=== PATIENT | female | born 1970 | race Caucasian/White ===

== ENCOUNTER 2017-01-13 17:48 | Inpatient (IN) | payer OTHER ==
[2017-01-13 18:03] VITALS: BMI 20.2
--- NOTE | 2017-01-13 19:57 | PDOC ---
History of Present Illness - General Chief Complaint: Injury Stated Complaint: FALL/LT ARM INJURY/LT LEG INJURY Time Seen by Provider: 01/13/17 19:21 History Source: Patient - History of Present Illness Occurred: reports: yesterday Lower Extremity Pain Location: left: knee, hip Method of Injury: Yes: fell Past History - Past Medical History Allergies/Adverse Reactions: Allergies Allergy/AdvReac Type Severity Reaction Status Date / Time No Known Allergies Allergy Verified 01/13/17 18:03 Cardiac Disorders: (PVCS) HTN: Yes Liver Disease: Yes (cirrhosis) - Psycho/Social/Smoking Cessation Hx Suicidal Ideation: No Smoking History: Current every day smoker Number of Cigarettes Smoked Daily: 5 Information on smoking cessation initiated: Yes 'Breaking Loose' booklet given: 01/13/17 Hx Alcohol Use: No Drug/Substance Use Hx: No Review of Systems - Review of Systems Musculoskeletal: Yes: Joint Pain. No: Joint Swelling *Physical Exam - Vital Signs Last Vital Signs Temp Pulse Resp BP Pulse Ox 98.2 F 112 H 19 144/105 97 01/13/17 18:01 01/13/17 18:01 01/13/17 18:01 01/13/17 18:01 01/13/17 18:01 - Physical Exam General Appearance: Yes: Appropriately Dressed. No: Apparent Distress HEENT: positive: Normal Voice Neck: positive: Supple Respiratory/Chest: negative: Respiratory Distress Extremity: positive: Tender (w/ large area of ecchymosis to anterior distal L thigh, no joint swelling, deformity, able to bear weight in ED) Integumentary: positive: Dry, Warm Neurologic: positive: Fully Oriented, Alert, Normal Mood/Affect Medical Decision Making - Medical Decision Making 01/13/17 19:54 46-year-old female history of alcoholic cirrhosis, on transplant list, hypertension, here complaining of left hip and knee pain status post fall yesterday. Patient states while walking her dog, she tripped over an uneven pavement. Has had difficulty bearing weight on the left since. Denies any head injuries. Patient tachy at triage with large area of ecchymosis to distal aspect of anterior left thigh. No joint swelling or deformity. Able to bear weight. Most likely muscular, rule out fracture 01/13/17 20:38 X-ray negative for fracture. Upon reassessment, patient with severe tremor now and remains tachy to 112. Patient now admits that she drinks alcohol almost on a daily basis, but that last alcoholic intake was 4 days ago. Denies previous admissions for alcohol withdrawal or alcohol withdrawal related seizures. Patient transferred to main ED for further evaluation and treatment for etoh withdrawal. Charge nurse and ED attg aware *DC/Admit/Observation/Transfer Diagnosis at time of Disposition: Thigh contusion Qualifiers: Encounter type: initial encounter Laterality: left Qualified Code(s): S70.12XA - Contusion of left thigh, initial encounter Alcohol dependence with withdrawal Qualifiers: Complication of substance-induced condition: uncomplicated Qualified Code(s): F10.230 - Alcohol dependence with withdrawal, uncomplicated - Referrals Referrals: STAFF,NOT ON [Primary Care Provider] -
[2017-01-13] MEDS ORDERED: LORAZEPAM CARPU-JECT 2 MG/ML DISP.SYRIN IVPUSH ONE (20:39)
[2017-01-13] MEDS ORDERED: FOLIC ACID INJECTION - 1 MG, THIAMINE HCL 100 MG, MULTIVIT INJECTION ADULT 10 ML in SOD... IVPB ONE (20:39)
[2017-01-13] MEDS ORDERED: LORAZEPAM CARPU-JECT 2 MG/ML DISP.SYRIN ONE (21:03)
[2017-01-13] MEDS: SODIUM CHLORIDE 1,000 ML IV SCH (21:14)
[2017-01-13 21:18] LABS: BASOPHIL 1.2 % (0-2.0); EOSINOPHIL 0.2 % (0-4.5); MCH 37.4 pg (25.7-33.7); MCHC 32.8 g/dl (32.0-36.0); MEAN PLT VOLUME 10.8 fl (7.5-11.1); NEUTROPHILS 61.5 % (42.8-82.8); RDW 16.3 % (11.6-15.6); WHITE BLOOD COUNT 3.2 K/mm3 (4.0-10.0)
[2017-01-13 21:25] LABS: PLATELET COUNT 30 K/MM3 (134-434)
--- NOTE | 2017-01-13 21:26 | PDOC ---
History of Present Illness - General History Source: Patient, Old Records Exam Limitations: No Limitations - History of Present Illness Initial Comments: 01/14/17 04:57 The patient is a 46 year old female, with a significant past medical history of hypertension and alcoholic cirrhosis (the patient reports she is on liver transplant list), who presents to the emergency department with alcohol withdrawal. This patient was initially seen in fast track for left hip/pelvis and left knee pain s/p a mechanical trip and fall yesterday. The patient had x- rays done, which were negative for any acute injury. However, upon reassessment , the patient was noted to be tachycardic and tremulous in fast track so she was transferred to the main ED for further evaluation and management. The patient reports almost daily alcohol consumption and states that her most recent drink was 4 days ago. However, the patient denies any previous admissions for alcohol withdrawal or alcohol withdrawal related seizures. Upon arrival to the main ED, the patient is confused and appears to be visibly hallucinating because she is picking at bugs on the wall which do not exist. The patient does wish to enter a detox program for alcohol. Allergies: None reported. Past Surgical History: None reported. Social History: Current everyday smoker. Alcohol abuse - See HPI. Denies drug use. <Elen Ingram - Last Filed: 01/14/17 04:57> <Lawrence Ulirch - Last Filed: 01/14/17 06:19> - General Chief Complaint: Injury Stated Complaint: FALL/LT ARM INJURY/LT LEG INJURY Time Seen by Provider: 01/13/17 19:21 Past History <Elen Ingram - Last Filed: 01/14/17 04:57> - Past Medical History Cardiac Disorders: (PVCS) HTN: Yes Liver Disease: Yes (cirrhosis) - Psycho/Social/Smoking Cessation Hx Suicidal Ideation: No Smoking History: Current every day smoker Number of Cigarettes Smoked Daily: 5 Information on smoking cessation initiated: Yes 'Breaking Loose' booklet given: 01/13/17 Hx Alcohol Use: No Drug/Substance Use Hx: No <Lawrence Ulrich - Last Filed: 01/14/17 06:19> - Past Medical History Allergies/Adverse Reactions: Allergies Allergy/AdvReac Type Severity Reaction Status Date / Time No Known Allergies Allergy Verified 01/13/17 18:03 Home Medications: Ambulatory Orders Magnesium Oxide [Magnesium] 400 mg PO DAILY 01/13/17 Potassium Chloride 20 meq PO BID 01/13/17 Spironolactone 25 mg PO BID 01/13/17 Review of Systems - Review of Systems Able to Perform ROS?: Yes Comments:: 01/14/17 01:40 GENERAL/CONSTITUTIONAL: +Confusion. No fever or chills. No weakness. HEAD, EYES, EARS, NOSE AND THROAT: No change in vision. No ear pain or discharge. No sore throat. CARDIOVASCULAR: No chest pain or shortness of breath. RESPIRATORY: No cough, wheezing, or hemoptysis. GASTROINTESTINAL: No nausea, vomiting, diarrhea or constipation. GENITOURINARY: No dysuria, frequency, or change in urination. MUSCULOSKELETAL: No joint or muscle swelling or pain. No neck or back pain. SKIN: No rash. NEUROLOGIC: No headache, vertigo, loss of consciousness, or change in strength/ sensation. ENDOCRINE: No increased thirst. No abnormal weight change. HEMATOLOGIC/LYMPHATIC: No anemia, easy bleeding, or history of blood clots. ALLERGIC/IMMUNOLOGIC: No hives or skin allergy. <Elen Ingram - Last Filed: 01/14/17 04:57> *Physical Exam - Vital Signs Last Vital Signs Temp Pulse Resp BP Pulse Ox 98.2 F 112 H 19 144/105 97 01/13/17 18:01 01/13/17 18:01 01/13/17 18:01 01/13/17 18:01 01/13/17 18:01 - Physical Exam Comments: 01/14/17 01:39 GENERAL: Intention tremor. Awake, alert, and fully oriented, in no acute distress. HEAD: No signs of trauma. EYES: PERRLA, EOMI, sclera anicteric, conjunctiva clear. ENT: Auricles normal inspection, hearing grossly normal, nares patent, oropharynx clear without exudates. Moist mucosa. NECK: Normal ROM, supple, no lymphadenopathy, JVD, or masses. LUNGS: Breath sounds equal, clear to auscultation bilaterally. No wheezes, and no crackles. HEART: Regular rate and rhythm, normal S1 and S2, no murmurs, rubs or gallops. ABDOMEN: Soft, nontender, normoactive bowel sounds. No guarding, no rebound. No masses. EXTREMITIES: Normal range of motion, no edema. No clubbing or cyanosis. No cords , erythema, or tenderness. NEUROLOGICAL: Cranial nerves II through XII intact. Normal speech, gait deferred. SKIN: Warm, dry, normal turgor, no rashes or lesions noted. <Elen Ingram - Last Filed: 01/14/17 04:57> - Vital Signs Last Vital Signs Temp Pulse Resp BP Pulse Ox 98.2 F 112 H 19 144/105 97 01/13/17 18:01 01/13/17 18:01 01/13/17 18:01 01/13/17 18:01 01/13/17 18:01 <Lawrence Ulrich - Last Filed: 01/14/17 06:19> ED Treatment Course - LABORATORY CBC & Chemistry Diagram: 01/13/17 21:15 01/13/17 21:10 - ADDITIONAL ORDERS Additional order review: Laboratory Results 01/13/17 01/13/17 21:15 21:15 INR 1.74 H Direct Bilirubin 3.0 H Creatine Kinase 366 H Troponin I 0.02 01/13/17 21:15 RBC 2.75 L MCV 114.0 H MCHC 32.8 RDW 16.3 H MPV 10.8 Neutrophils % 61.5 Lymphocytes % 21.7 Monocytes % 15.4 H Eosinophils % 0.2 Basophils % 1.2 - Medications Given in the ED: ED Medications Discontinued Medications Generic Name Dose Route Start Last Admin Trade Name Freq PRN Reason Stop Dose Admin Lorazepam 2 mg 01/13/17 20:39 01/13/17 21:14 Ativan Injection - IVPUSH 01/13/17 20:40 2 mg ONCE ONE Administration <Elen Ingram - Last Filed: 01/14/17 04:57> - LABORATORY CBC & Chemistry Diagram: 01/13/17 21:15 01/13/17 21:10 - Medications Given in the ED: ED Medications Discontinued Medications Generic Name Dose Route Start Last Admin Trade Name Freq PRN Reason Stop Dose Admin Lorazepam 2 mg 01/13/17 20:39 01/13/17 21:14 Ativan Injection - IVPUSH 01/13/17 20:40 2 mg ONCE ONE Administration <Lawrence Ulrich - Last Filed: 01/14/17 06:19> Medical Decision Making - Medical Decision Making 01/14/17 01:42 The patient was initially confused but after she was given multivitamins in addition to Ativan in the main ED, she is now making sense and is requesting detox from alcohol. Arrangements will be made for the patient to receive detox from alcohol at [facility]. <Elen Ingram - Last Filed: 01/14/17 04:57> - Medical Decision Making 01/14/17 00:03 Patient no longer picking at bugs that are not there. No visual or audio hallucinations. Sleeping mostly with no tremor, when she tries to sit up she does shake a little. She realizes she needs, and wants help. I spoke with the Nursing [employer] Patcher Helper at [facility], Sharda Dugan, at [phone]. She tells me they can accept her at [facility]. 01/14/17 06:15 Patient still unable to walk due to tremor. I spoke with the Hospitalist Service, [Jammie for Dr. Cheng] and Dr. Chavira [ICU] Will admit to ICU. <Lawrence Ulrich - Last Filed: 01/14/17 06:19> *DC/Admit/Observation/Transfer - Attestations Scribe Attestion: 01/13/17 22:18 Documentation prepared by Elen Ingram, acting as medical doctor for Lawrence Ulrich MD/. <Elen Ingram - Last Filed: 01/14/17 04:57> - Discharge Dispostion Admit: Yes - Attestations Physician Attestion: 01/13/17 21:21 I, Dr. Lawrence Ulrich, attest that this document has been prepared under my direction and personally reviewed by me in its entirety. I further attest, that it accurately reflects all work, treatment, procedures and medical decision -making performed by me. <Lawrence Ulrich - Last Filed: 01/14/17 06:19> Diagnosis at time of Disposition: Thrombocytopenia Thigh contusion Qualifiers: Encounter type: initial encounter Laterality: left Qualified Code(s): S70.12XA - Contusion of left thigh, initial encounter Alcohol dependence with withdrawal Qualifiers: Complication of substance-induced condition: uncomplicated Qualified Code(s): F10.230 - Alcohol dependence with withdrawal, uncomplicated Alcohol withdrawal Qualifiers: Complication of substance-induced condition: with unspecified complication Qualified Code(s): F10.239 - Alcohol dependence with withdrawal, unspecified Cirrhosis of liver Qualifiers: Hepatic cirrhosis type: alcoholic cirrhosis Ascites presence: with ascites Qualified Code(s): K70.31 - Alcoholic cirrhosis of liver with ascites - Discharge Dispostion Condition at time of disposition: Unchanged/Unknown - Referrals Referrals: STAFF,NOT ON [Primary Care Provider] - - Patient Instructions Additional Instructions: Go Directly to [facility] for Detox Admission - Post Discharge Activity
[2017-01-13 21:50] LABS: PLATELET ESTIMATE DECREASED (NORMAL)
[2017-01-13 21:51] LABS: ANISOCYTOSIS 1+; HYPOCHROMIA FEW; INR 1.74 (0.82-1.09); POLYCHROMASIA FEW; PROTHROMBIN TIME (PATIENT) 19.4 SEC (9.98-11.88); TARGET CELLS FEW; TROPONIN I 0.02 ng/ml (0.00-0.05)
[2017-01-13 22:35] LABS: URINE MARIJUANA THC NEGATIVE ng/ml (CUTOFF=50)
[2017-01-13 23:26] LABS: ALK PHOS 142 U/L (45-117); ANION GAP 14 (8-16); BILIRUBIN,TOTAL 5.2 mg/dL (0.2-1.0); CALCIUM 8.4 mg/dL (8.5-10.1); CO2 22 mmol/L (21-32); CREATININE 0.6 mg/dL (0.55-1.02); GLUCOSE,RANDOM 123 mg/dL (74-106); SGOT/AST 144 U/L (15-37); SGPT/ALT 49 U/L (12-78); TOT PROT 8.8 g/dl (6.4-8.2)
[2017-01-14] MEDS ORDERED: LORazepam 1 MG TABLET PO ONE ×2 (00:02→06:14)
[2017-01-14] MEDS ORDERED: LORazepam 0.5 MG TABLET ONE ×2 (00:05→06:22)
[2017-01-14] MEDS ORDERED: FOLIC ACID INJECTION - 1 MG, THIAMINE HCL 100 MG, MULTIVIT INJECTION ADULT 10 ML in SOD... IVPB ONE (09:00)
[2017-01-14] MEDS: chlordiazePOXIDE HCL 25 MG CAPSULE PO SCH ×3 (11:21→22:13)
--- NOTE | 2017-01-14 12:18 | HP ---
CHIEF COMPLAINT:knee/hip pain; alcohol withdrawal PCP: HISTORY OF PRESENT ILLNESS: 46 year old female with a PMHx of hypertension, alcoholic liver cirrhosis (on transplant list), presents s/p fall after intoxication. Patient admits to recently drinking "2 bottles". Actual quantity and specific alcohol ingested unknown. Presented to ER with knee and hip ecchymosis, slurred speech. Unable to obtain detailed history due to withdrawal symptoms. ER course was notable for: (1)anemia; thrombocytopenia (2)xrays negative for fracture (3) Recent Travel: no PAST MEDICAL HISTORY: hypertension, liver cirrhosis PAST SURGICAL HISTORY: Social History: Smokin cigs per day Alcohol:daily Drugs: no Family History: Allergies No Known Allergies Allergy (Verified 01/13/17 18:03) HOME MEDICATIONS: Home Medications Medication Instructions Recorded Magnesium Oxide [Magnesium] 400 mg PO DAILY 01/13/17 Potassium Chloride 20 meq PO BID 01/13/17 Spironolactone 25 mg PO BID 01/13/17 REVIEW OF SYSTEMS CONSTITUTIONAL: Positive: chills, diaphoresis, generalized weakness, malaise, Absent: fever, loss of appetite, weight change HEENT: Absent: rhinorrhea, nasal congestion, throat pain, throat swelling, difficulty swallowing, mouth swelling, ear pain, eye pain, visual changes CARDIOVASCULAR: Absent: chest pain, syncope, palpitations, irregular heart rate, lightheadedness , peripheral edema RESPIRATORY: Absent: cough, shortness of breath, dyspnea with exertion, orthopnea, wheezing, stridor, hemoptysis GASTROINTESTINAL: Positive: nausea Absent: abdominal pain, abdominal distension, vomiting, diarrhea, constipation, melena, hematochezia GENITOURINARY: Absent: dysuria, frequency, urgency, hesitancy, hematuria, flank pain, genital pain MUSCULOSKELETAL: Absent: myalgia, arthralgia, joint swelling, back pain, neck pain SKIN: Positive: ecchymosis ; left knee; right thigh Absent: rash, itching, pallor HEMATOLOGIC/IMMUNOLOGIC: Absent: easy bleeding, easy bruising, lymphadenopathy, frequent infections ENDOCRINE: Absent: unexplained weight gain, unexplained weight loss, heat intolerance, cold intolerance NEUROLOGIC: Positive: dizziness, unsteady gait, extension tremor Absent: headache, focal weakness or paresthesias, seizure, mental status changes, bladder or bowel incontinence PSYCHIATRIC: Absent: anxiety, depression, suicidal or homicidal ideation, hallucinations. PHYSICAL EXAMINATION Vital Signs - 24 hr 01/14/17 01/14/17 01/14/17 07:36 08:02 09:21 Temperature 99.6 F Pulse Rate 85 Pulse Rate [ 77 76 Radial] Respiratory 16 16 20 Rate Blood Pressure 129/74 Blood Pressure 134/77 132/83 [Arm] O2 Sat by Pulse 97 99 94 L Oximetry (%) GENERAL: Awake, alert, not able to make full sentences HEAD: Normal with no signs of trauma. LUNGS: Breath sounds equal, clear to auscultation bilaterally. No wheezes, and no crackles. No accessory muscle use. HEART: tachycardic and rhythm, normal S1 and S2, systolic murmur, rub or gallop. ABDOMEN: Soft, nontender, not distended, normoactive bowel sounds, no guarding, no rebound, no masses. No hepatomegaly or splenomegaly. MUSCULOSKELETAL: Normal range of motion at all joints. No bony deformities or tenderness. No CVA tenderness. UPPER EXTREMITIES: 2+ pulses, warm, well-perfused. No cyanosis. No clubbing. No peripheral edema. LOWER EXTREMITIES: 2+ pulses, warm, well-perfused. No calf tenderness. No peripheral edema. b/l ecchymosis left knee; right thigh NEUROLOGICAL: unable to assess; patient not following commands SKIN: Warm, dry, normal turgor, no rashes or lesions noted, normal capillary refill. ecchymosis ASSESSMENT/PLAN: 46 yea old male with a PMHx of alcoholic cirrhosis, on transplant list, hypertension, daily drinker; last drink 4 days ago as per chart, presents with hip and leg pain s/p fall after binge drinking. Admitted for ETOH withdrawal #Alcohol withdrawal: -CIWA score 14 -ativan prn given in ER -started on librium protocol -50mg q6h for 24hrs -25mg q6h for 24hrs -15mg q6h for 24hrs -10mg q6h for 24hrs -re- evaluate for adjustments in taper -bananna bag with vit b12/folate # macrocytic anemia most likely secondary to alcohol -vit b12, folate -iron studies #hip and knee pain: -r/o fracture s/p fall -xrays negative for acute bony pathology #hypertension: -cont home med spironolactonbe with k supp FEN: Fluids: NS Electrolytes: trend Diet: regular VTE: prophylaxis : scds Disposition: monitor DTs Visit type - Emergency Visit Emergency Visit: Yes ED Registration Date: 01/14/17 Care time: The patient presented to the Emergency Department on the above date and was hospitalized for further evaluation of their emergent condition. - New Patient This patient is new to me today: Yes Date on this admission: 01/14/17 - Critical Care Critical Care patient: No
--- NOTE | 2017-01-14 18:48 | PN ---
Teaching Attending Note Name of Resident: Yeny Mancia ATTENDING PHYSICIAN STATEMENT I saw and evaluated the patient. I reviewed the resident's note and discussed the case with the resident. I agree with the resident's findings and plan as documented. SUBJECTIVE: This is a 46-year-old woman with a history of alcoholic cirrhosis, HTN who presents to the ER with left hip and left knee pain after a fall. She became tachycardic, tremulous and confused. She was noted to be seeing bugs on the chi. Her last drink was about 4 days ago. OBJECTIVE: Vital Signs Period Temp Pulse Resp BP Sys/Thao Pulse Ox Last 24 Hr 98.1 F-99.6 F 75-89 16-20 129-162/74-90 94-100 GENERAL: Awake, alert, confused. HEART: S1S2, RRR LUNGS: Clear ABDOMEN: Soft, non-tender, non-distended, normal BS EXTREMITIES: No edema ASSESSMENT AND PLAN: This is a 46-year-old woman with a history of alcoholic cirrhosis, HTN who presented to the ER with left hip and left knee pain after a fall and developed alcohol withdrawal. 1. Delirium tremens/alcohol withdrawal - Start Librium detox - Multivitamin, thiamine, folic acid 2. Continuous alcohol dependence 3. Alcoholic cirrhosis - Continue Aldactone 4. HTN - COntinue Aldactone 5. Pancytopenia secondary to alcohol and liver disease - Monitor CBC
[2017-01-14] MEDS: SPIRONOLACTONE 25 MG TABLET (FP) PO SCH (22:13)
[2017-01-14] MEDS: POTASSIUM CHLORIDE TABS 20 MEQ TABLET.ER (FP) PO SCH (22:13)
[2017-01-14] MEDS: SODIUM CHLORIDE 1,000 ML IV SCH (22:14)
[2017-01-15] MEDS: chlordiazePOXIDE HCL 25 MG CAPSULE PO SCH ×4 (05:19→23:50)
[2017-01-15 07:34] LABS: MCH 38.4 pg (25.7-33.7); MCHC 33.1 g/dl (32.0-36.0); MEAN CELL VOLUME 115.9 fl (80-96); MEAN PLT VOLUME 9.2 fl (7.5-11.1); RDW 15.6 % (11.6-15.6); WHITE BLOOD COUNT 3.2 K/mm3 (4.0-10.0)
[2017-01-15 07:59] LABS: PLATELET COUNT 18 K/MM3 (134-434)
--- NOTE | 2017-01-15 08:19 | EKG ---
Test Reason : Blood Pressure : / mmHG Vent. Rate : 077 BPM Atrial Rate : 077 BPM P-R Int : 154 ms QRS Dur : 100 ms QT Int : 454 ms P-R-T Axes : 063 063 058 degrees QTc Int : 513 ms NORMAL SINUS RHYTHM INCOMPLETE RIGHT BUNDLE BRANCH BLOCK NONSPECIFIC T WAVE ABNORMALITY PROLONGED QT ABNORMAL ECG NO PREVIOUS ECGS AVAILABLE Confirmed by PRIMO CORDON MD ([id number]) on 01/15/2017 8:19:09 AM Referred By: Confirmed By:PRIMO CORDON MD
[2017-01-15 11:14] LABS: ALBUMIN 2.5 g/dl (3.4-5.0); ALK PHOS 82 U/L (45-117); ANION GAP 13 (8-16); BILIRUBIN,TOTAL 6.8 mg/dL (0.2-1.0); CALCIUM 7.7 mg/dL (8.5-10.1); CO2 18 mmol/L (21-32); CREATININE 0.5 mg/dL (0.55-1.02); GLUCOSE,RANDOM 77 mg/dL (74-106); MAGNESIUM 1.2 mg/dL (1.8-2.4); PHOSPHOROUS 2.7 mg/dL (2.5-4.9); SGOT/AST 104 U/L (15-37); SGPT/ALT 35 U/L (12-78); TOT PROT 7.5 g/dl (6.4-8.2)
[2017-01-15] MEDS ORDERED: PT OWN MED DRAWER 7, Y5N ONE (11:14)
[2017-01-15] MEDS: POTASSIUM CHLORIDE TABS 20 MEQ TABLET.ER (FP) PO SCH ×2 (11:17→22:23)
[2017-01-15] MEDS: MAGNESIUM OXIDE 400 MG TABLET (FP) PO SCH (11:17)
[2017-01-15] MEDS: SPIRONOLACTONE 25 MG TABLET (FP) PO SCH ×2 (11:17→22:23)
[2017-01-15] MEDS: SODIUM CHLORIDE 1,000 ML IV SCH ×2 (11:18→22:23)
[2017-01-15 11:22] LABS: FERRITIN 1173.708 ng/ml (6.9-282.5)
[2017-01-15] MEDS ORDERED: POTASSIUM CHLORIDE TABS 20 MEQ TABLET.ER (FP) PO ONE (12:15)
[2017-01-15] MEDS ORDERED: MAGNESIUM OXIDE 400 MG TABLET (FP) PO ONE (12:15)
--- NOTE | 2017-01-15 16:45 | PN ---
Teaching Attending Note Name of Resident: Yeny Mancia ATTENDING PHYSICIAN STATEMENT I saw and evaluated the patient. I reviewed the resident's note and discussed the case with the resident. I agree with the resident's findings and plan as documented. SUBJECTIVE: Patient is sleepy. OBJECTIVE: Vital Signs Period Temp Pulse Resp BP Sys/Thao Pulse Ox Last 24 Hr 97.4 F-100.3 F 75-92 16-20 123-152/72-89 97 HEART: S1S2, RRR LUNGS: Clear ABDOMEN: Soft, non-distended, normal BS EXTREMITIES: No edema ASSESSMENT AND PLAN: This is a 46-year-old woman with a history of alcoholic cirrhosis, HTN who presented to the ER with left hip and left knee pain after a fall and developed alcohol withdrawal. 1. Delirium tremens/alcohol withdrawal - Improving - Continue Librium detox 2. Continuous alcohol dependence 3. Alcoholic cirrhosis - Continue Aldactone 4. HTN - Continue Aldactone 5. Pancytopenia secondary to alcohol and liver disease - Platelets decreased - continue to monitor - WBC, Hgb stable 6. Hypopkalemia - Replete potassium
--- NOTE | 2017-01-15 17:50 | CONSULT ---
Consult Detox [facility] Reason for Current Admission/Consult: Alcohol withdrawal sx. Referred by:: Yeny Mancia Res - History History of Present Illness: 46 y/o woman came to ER c/o left hip & pelvis pain following a fall.However pt. was observed to be tremulous & HR of 110/min - History Source History Provided By: Patient, Medical Record - Alcohol/Substance Use Hx Alcohol Use: Yes - Current Drug/Alcohol Use Alcohol Route: Oral Frequency: Daily Amount used: vodka 2 pints Date of Last Use: 01/09/17 - Significant Medical Findings: Laboratory Last Values WBC 3.2 K/mm3 (4.0-10.0) L 01/15/17 05:35 RBC 2.66 M/mm3 (3.60-5.2) L 01/15/17 05:35 Hgb 10.2 GM/dL (10.7-15.3) L 01/15/17 05:35 Hct 30.8 % (32.4-45.2) L 01/15/17 05:35 MCV 115.9 fl (80-96) H 01/15/17 05:35 MCHC 33.1 g/dl (32.0-36.0) 01/15/17 05:35 RDW 15.6 % (11.6-15.6) 01/15/17 05:35 Plt Count 18 K/MM3 (134-434) L* D 01/15/17 05:35 MPV 9.2 fl (7.5-11.1) D 01/15/17 05:35 Neutrophils % 61.5 % (42.8-82.8) 01/13/17 21:15 Lymphocytes % 21.7 % (8-40) 01/13/17 21:15 Monocytes % 15.4 % (3.8-10.2) H 01/13/17 21:15 Eosinophils % 0.2 % (0-4.5) 01/13/17 21:15 Basophils % 1.2 % (0-2.0) 01/13/17 21:15 Platelet Estimate Decreased (NORMAL) 01/13/17 21:15 Platelet Comment No clumping noted 01/13/17 21:15 Polychromasia Few 01/13/17 21:15 Hypochromic-Microcytic Few 01/13/17 21:15 Anisocytosis 1+ 01/13/17 21:15 Macrocytosis 3+ 01/13/17 21:15 Target Cells Few 01/13/17 21:15 Retic Count 3.95 % (0.5-1.5) H 01/15/17 05:50 INR 1.74 (0.82-1.09) H 01/13/17 21:15 Sodium 139 mmol/L (136-145) 01/15/17 05:40 Potassium 3.2 mmol/L (3.5-5.1) L 01/15/17 05:40 Chloride 108 mmol/L (98-107) H 01/15/17 05:40 Carbon Dioxide 18 mmol/L (21-32) L 01/15/17 05:40 Anion Gap 13 (8-16) 01/15/17 05:40 BUN 7 mg/dL (7-18) D 01/15/17 05:40 Creatinine 0.5 mg/dL (0.55-1.02) L 01/15/17 05:40 Creat Clearance w eGFR > 60 (>60) 01/15/17 05:40 Random Glucose 77 mg/dL (74-106) D 01/15/17 05:40 Calcium 7.7 mg/dL (8.5-10.1) L 01/15/17 05:40 Phosphorus 2.7 mg/dL (2.5-4.9) 01/15/17 05:40 Magnesium 1.2 mg/dL (1.8-2.4) L 01/15/17 05:40 Ferritin 1173.708 ng/ml (6.9-282.5) H 01/15/17 05:40 Total Bilirubin 6.8 mg/dL (0.2-1.0) H D 01/15/17 05:40 Direct Bilirubin 3.0 mg/dL (0.0-0.2) H 01/13/17 21:15 AST 104 U/L (15-37) H D 01/15/17 05:40 ALT 35 U/L (12-78) D 01/15/17 05:40 Alkaline Phosphatase 82 U/L (45-117) D 01/15/17 05:40 Ammonia 31.62 umol/L (11-32) 01/13/17 21:15 Creatine Kinase 366 IU/L (26-192) H 01/13/17 21:15 CK-MB (CK-2) 4.85 ng/ml (0.5-3.6) H 01/13/17 21:15 Troponin I 0.02 ng/ml (0.00-0.05) 01/13/17 21:15 Total Protein 7.5 g/dl (6.4-8.2) 01/15/17 05:40 Albumin 2.5 g/dl (3.4-5.0) L 01/15/17 05:40 Lipase 368 U/L (73-393) 01/13/17 21:10 Vitamin B12 2500 pg/ml (180-914) H 01/15/17 05:40 Serum Folate 20 ng/ml (3.1-17.5) H 01/15/17 05:40 Opiates Screen Negative ng/ml (TVFUEM=916) 01/13/17 22:17 Methadone Screen Negative ng/ml (SBERWD=363) 01/13/17 22:17 Barbiturate Screen Negative ng/ml (TDCWIE=326) 01/13/17 22:17 Phencyclidine Screen Negative ng/ml (CUTOFF=25) 01/13/17 22:17 Ur Amphetamines Screen Negative ng/ml (DNMSWK=136) 01/13/17 22:17 MDMA (Ecstasy) Screen Negative ng/ml (BWCKZL=855) 01/13/17 22:17 Benzodiazepines Screen Negative ng/ml (CLQPYR=322) 01/13/17 22:17 Cocaine Screen Negative ng/ml (HAKTSV=281) 01/13/17 22:17 U Marijuana (THC) Screen Negative ng/ml (CUTOFF=50) 01/13/17 22:17 Alcohol, Quantitative 14.9 mg/dl (0-5) H* 01/13/17 21:16 labs noted CIWA Score - CIWA Score Nausea/Vomitin Muscle Tremors: 5 Anxiety: 4-Mod. Anxious/Guarded Agitation: 4-Moderately Restless Paroxysmal Sweats: 3 Orientation: 0-Oriented Tacttile Disturbances: 1-Very Mild Itch/Numbness Auditory Disturbances: 0-None Visual Disturbances: 0-None Headache: 0-None Present CIWA-Ar Total Score: 19 Assessment Plan - Diagnosis (1) Alcohol dependence with withdrawal Status: Acute Qualifiers: Complication of substance-induced condition: uncomplicated Qualified Code(s): F10.230 - Alcohol dependence with withdrawal, uncomplicated (2) Cirrhosis of liver Status: Acute Qualifiers: Hepatic cirrhosis type: alcoholic cirrhosis Ascites presence: with ascites Qualified Code(s): K70.31 - Alcoholic cirrhosis of liver with ascites - Medication Detox Regimen/Protocol: Librium
--- NOTE | 2017-01-15 18:45 | PN ---
Physical Exam: SUBJECTIVE: Patient seen and examined, lethargic, less tremor. Family does NOT want patient to go to [facility] OBJECTIVE: Vital Signs Period Temp Pulse Resp BP Sys/Thao Pulse Ox Last 24 Hr 97.4 F-99.4 F 75-92 16-20 123-152/72-86 97 GENERAL: The patient is lethargic HEAD: Normal with no signs of trauma. LUNGS: Breath sounds equal, clear to auscultation bilaterally, no wheezes, no crackles, no accessory muscle use. HEART: Regular rate and rhythm, S1, S2 without murmur, rub or gallop. ABDOMEN: Soft, nontender, nondistended, normoactive bowel sounds, no guarding, no rebound, no hepatosplenomegaly, no masses. EXTREMITIES: 2+ pulses, warm, well-perfused, no edema. NEUROLOGICAL: Cranial nerves II through XII grossly intact. slurredspeech, gait not observed. extension tremor less; PSYCH: Normal mood, normal affect. SKIN: Warm, dry, normal turgor, no rashes or lesions noted Laboratory Results - last 24 hr 01/15/17 01/15/17 01/15/17 05:35 05:40 05:40 WBC 3.2 L RBC 2.66 L Hgb 10.2 L Hct 30.8 L MCV 115.9 H MCHC 33.1 RDW 15.6 Plt Count 18 L* D MPV 9.2 D Retic Count Sodium 139 Potassium 3.2 L Chloride 108 H Carbon Dioxide 18 L Anion Gap 13 BUN 7 D Creatinine 0.5 L Creat Clearance w eGFR > 60 Random Glucose 77 D Calcium 7.7 L Phosphorus 2.7 Magnesium 1.2 L Ferritin 1173.708 H Cancelled Total Bilirubin 6.8 H D AST 104 H D ALT 35 D Alkaline Phosphatase 82 D Total Protein 7.5 Albumin 2.5 L Vitamin B12 2500 H Cancelled Serum Folate 20 H 01/15/17 05:50 WBC RBC Hgb Hct MCV MCHC RDW Plt Count MPV Retic Count 3.95 H Sodium Potassium Chloride Carbon Dioxide Anion Gap BUN Creatinine Creat Clearance w eGFR Random Glucose Calcium Phosphorus Magnesium Ferritin Total Bilirubin AST ALT Alkaline Phosphatase Total Protein Albumin Vitamin B12 Serum Folate Active Medications Generic Name Dose Route Start Last Admin Trade Name Freq PRN Reason Stop Dose Admin Chlordiazepoxide HCl 25 mg 01/15/17 11:00 01/15/17 17:59 Librium - PO 01/16/17 05:01 25 mg [id number] JOSEMANUEL Administration Chlordiazepoxide HCl 15 mg 01/16/17 11:00 Librium - PO 01/17/17 05:01 [id number] JOSEMANUEL Chlordiazepoxide HCl 10 mg 01/17/17 11:00 Librium - PO 01/18/17 05:01 [id number] JOSEMANUEL Sodium Chloride 1,000 mls @ 125 mls/hr 01/13/17 20:45 01/15/17 11:18 Normal Saline - IV 125 mls/hr ASDIR JOSEMANUEL Administration Magnesium Oxide 400 mg 01/15/17 10:00 01/15/17 11:17 Mag-Ox - PO 400 mg DAILY JOSEMANUEL Administration Potassium Chloride 20 meq 01/14/17 22:00 01/15/17 11:17 K-Dur - PO 20 meq BID JOSEMANUEL Administration Spironolactone 25 mg 01/14/17 22:00 01/15/17 11:17 Aldactone - PO 25 mg BID JOSEMANUEL Administration ASSESSMENT/PLAN: 46 yea old male with a PMHx of alcoholic cirrhosis, on transplant list, hypertension, daily drinker; last drink 4 days ago as per chart, presents with hip and leg pain s/p fall after binge drinking. Admitted for ETOH withdrawal #Alcohol withdrawal: -CIWA score 14 -ativan prn given in ER -started on librium protocol -re- evaluate for adjustments in taper -bananna bag with vit b12/folate # macrocytic anemia most likely secondary to alcohol -vit b12, folate -iron studies #hip and knee pain: -r/o fracture s/p fall -xrays negative for acute bony pathology #hypertension: -cont home med spironolacton with k supp FEN: Fluids: NS Electrolytes: trend Diet: regular VTE: prophylaxis : scds Disposition: monitor DTs; Family does not want patient to go to [facility] for detox; they are interested in other options Visit type - Emergency Visit Emergency Visit: Yes ED Registration Date: 01/14/17 Care time: The patient presented to the Emergency Department on the above date and was hospitalized for further evaluation of their emergent condition. - New Patient This patient is new to me today: No - Critical Care Critical Care patient: No
--- NOTE | 2017-01-15 22:39 | HOSP ---
Subjective - Review of Symptoms HEENT: Yes: Eye Pain Physical Examination Vital Signs: Vital Signs Temperature 99 F 01/15/17 18:38 Pulse Rate 78 01/15/17 18:38 Respiratory Rate 18 01/15/17 21:00 Blood Pressure 129/74 01/15/17 18:38 O2 Sat by Pulse Oximetry (%) 95 01/15/17 21:00 Constitutional: Yes: Calm Eyes: Yes: Other (unable to open eyes.) Labs: CBC, BMP 01/15/17 05:35 01/15/17 05:40 Hospitalist Encounter Assessment: called by nursing to evaluation pt's eyes. at start of shift pt was noted to have severe crusting of b/l eyes and pt was unable to open them. after cleaning the honey-colored dried debri, eyelids were still difficult to open, scant thick discharge noted between eyelids. pt said she had contacts in, acuvue brand, placed prior to hospital admission. as per mother at bedside, there is only one contact in the left eye. pt said she had some pain to palpation around right orbital but denied eye pain. no edema, erythema, ecchymosis around b/l eyes. Outcome: after placing saline soaked gauze on b/l eyes for sometime, pt was able to slightly open them, enough to instill eye drop. suspicious for bacterial conjuctivities due to retained contacts. ciloxan 0.3% OU q6h. Recommendations/Interventions: continue eye drops. recommend opthomology evaluation if contacts are retained or no improvement with eye drops is seen. Visit type - Emergency Visit Emergency Visit: No - New Patient This patient is new to me today: Yes Date on this admission: 01/15/17 - Critical Care Critical Care patient: No
[2017-01-16] MEDS: CIPROFLOXACIN HCL 0.3% OPHTH 2.5ML BOTTLE OU SCH ×4 (01:38→18:31)
[2017-01-16] MEDS ORDERED: PT OWN MED DRAWER 7, Y5N ONE ×4 (01:42→18:11)
[2017-01-16] MEDS: chlordiazePOXIDE HCL 25 MG CAPSULE PO SCH (06:23)
--- NOTE | 2017-01-16 07:32 | PN ---
Physical Exam: SUBJECTIVE: Patient seen and examined more awake and oriented today. C/o of crust yellow discharge from b/l eyes. She states she has history of multiple eye infections. OBJECTIVE: Vital Signs Period Temp Pulse Resp BP Sys/Thao Pulse Ox Last 24 Hr 97.6 F-99.1 F 76-92 16-20 110-150/67-83 95 GENERAL: The patient is awake, alert, and fully oriented, in no acute distress. HEAD: Normal with no signs of trauma. EYES: sclera anicteric, yellow discharge b/l; eyes lids hard to open. No ptosis. LUNGS: Breath sounds equal, clear to auscultation bilaterally, no wheezes, no crackles, no accessory muscle use. HEART: Regular rate and rhythm, S1, S2 without murmur, rub or gallop. ABDOMEN: Soft, nontender, nondistended, normoactive bowel sounds, no guarding, no rebound, no hepatosplenomegaly, no masses. EXTREMITIES: 2+ pulses, warm, well-perfused, no edema. NEUROLOGICAL: Cranial nerves II through XII grossly intact. Normal speech, gait not observed. extension tremor improved PSYCH: Normal mood, normal affect. SKIN: Warm, dry, normal turgor, no rashes or lesions noted Laboratory Results - last 24 hr 01/15/17 01/15/17 01/15/17 05:35 05:40 05:40 WBC 3.2 L RBC 2.66 L Hgb 10.2 L Hct 30.8 L MCV 115.9 H MCHC 33.1 RDW 15.6 Plt Count 18 L* D MPV 9.2 D Retic Count Sodium 139 Potassium 3.2 L Chloride 108 H Carbon Dioxide 18 L Anion Gap 13 BUN 7 D Creatinine 0.5 L Creat Clearance w eGFR > 60 Random Glucose 77 D Calcium 7.7 L Phosphorus 2.7 Magnesium 1.2 L Ferritin 1173.708 H Cancelled Total Bilirubin 6.8 H D AST 104 H D ALT 35 D Alkaline Phosphatase 82 D Total Protein 7.5 Albumin 2.5 L Vitamin B12 2500 H Cancelled Serum Folate 20 H 01/15/17 05:50 WBC RBC Hgb Hct MCV MCHC RDW Plt Count MPV Retic Count 3.95 H Sodium Potassium Chloride Carbon Dioxide Anion Gap BUN Creatinine Creat Clearance w eGFR Random Glucose Calcium Phosphorus Magnesium Ferritin Total Bilirubin AST ALT Alkaline Phosphatase Total Protein Albumin Vitamin B12 Serum Folate Active Medications Generic Name Dose Route Start Last Admin Trade Name Freq PRN Reason Stop Dose Admin Chlordiazepoxide HCl 15 mg 01/16/17 11:00 Librium - PO 01/17/17 05:01 [id number] JOSEMANUEL Chlordiazepoxide HCl 10 mg 01/17/17 11:00 Librium - PO 01/18/17 05:01 [id number] JOSEMANUEL Ciprofloxacin 2 drop 01/16/17 01:15 01/16/17 06:20 Ciloxan 0.3% Eye Drops - OU 2 drop Q6H JOSEMANUEL Administration Sodium Chloride 1,000 mls @ 125 mls/hr 01/13/17 20:45 01/15/17 22:23 Normal Saline - IV 125 mls/hr ASDIR JOSEMANUEL Administration Magnesium Oxide 400 mg 01/15/17 10:00 01/15/17 11:17 Mag-Ox - PO 400 mg DAILY JOSEMANUEL Administration Potassium Chloride 20 meq 01/14/17 22:00 01/15/17 22:23 K-Dur - PO 20 meq BID JOSEMANUEL Administration Spironolactone 25 mg 01/14/17 22:00 01/15/17 22:23 Aldactone - PO 25 mg BID JOSEMANUEL Administration ASSESSMENT/PLAN: 46 yea old male with a PMHx of alcoholic cirrhosis, on transplant list, hypertension, daily drinker; last drink 4 days ago as per chart, presents with hip and leg pain s/p fall after binge drinking. Admitted for ETOH withdrawal #Alcohol withdrawal: -CIWA score 14 on admission -ativan prn given in ER -bananna bag with vit b12/folate on admission -started on librium protocol #conjunctivitis bacterial vx viral; -minor pain a with greenish/yellow discharge -warm compresses fo open eyes -antibiotics eye drops # macrocytic anemia most likely secondary to alcohol -vit b12, folate -iron studies #thrombocytopenia secondary to alcohol use: improving #hip and knee pain:improved -r/o fracture s/p fall -xrays negative for acute bony pathology #hypertension: controlled -cont home med spironolacton with k supp #hypomagneisemia: -replace; laurent -on diruetics; poor oral intake #hypokalemia: resolved FEN: Fluids: NS Electrolytes: trend Diet: regular VTE: prophylaxis : scds; thrombocytopenia: Disposition: finich librium protocol; does not want park care; d/c after taper Visit type - Emergency Visit Emergency Visit: Yes ED Registration Date: 01/14/17 Care time: The patient presented to the Emergency Department on the above date and was hospitalized for further evaluation of their emergent condition. - New Patient This patient is new to me today: No - Critical Care Critical Care patient: No
[2017-01-16 08:33] LABS: BASOPHIL 1.2 % (0-2.0); EOSINOPHIL 1.5 % (0-4.5); MCH 38.4 pg (25.7-33.7); MCHC 32.8 g/dl (32.0-36.0); MEAN CELL VOLUME 117.2 fl (80-96); MEAN PLT VOLUME 10.3 fl (7.5-11.1); NEUTROPHILS 57.3 % (42.8-82.8); RDW 15.9 % (11.6-15.6); WHITE BLOOD COUNT 3.7 K/mm3 (4.0-10.0)
[2017-01-16 08:50] LABS: CALCIUM 7.6 mg/dL (8.5-10.1); COCKROFT - GAULT 116.263; CREATININE 0.5 mg/dL (0.55-1.02); MAGNESIUM 1.4 mg/dL (1.8-2.4)
[2017-01-16 08:52] LABS: PLATELET COUNT 23 K/MM3 (134-434)
[2017-01-16] MEDS: SPIRONOLACTONE 25 MG TABLET (FP) PO SCH ×2 (09:50→21:50)
[2017-01-16] MEDS: MAGNESIUM OXIDE 400 MG TABLET (FP) PO SCH (09:50)
[2017-01-16] MEDS: POTASSIUM CHLORIDE TABS 20 MEQ TABLET.ER (FP) PO SCH ×2 (09:54→21:50)
[2017-01-16] MEDS: chlordiazePOXIDE 5 MG CAPSULE PO SCH ×3 (11:00→22:41)
--- NOTE | 2017-01-16 13:27 | PN ---
Teaching Attending Note Name of Resident: Yeny Mancia ATTENDING PHYSICIAN STATEMENT I saw and evaluated the patient. I reviewed the resident's note and discussed the case with the resident. I agree with the resident's findings and plan as documented. SUBJECTIVE: Patient is confused. She has no complaints. OBJECTIVE: Vital Signs Period Temp Pulse Resp BP Sys/Thao Pulse Ox Last 24 Hr 98.0 F-99.1 F 76-84 16-20 110-150/67-83 95-98 HEART: S1 S2, RRR LUNGS: Clear ABDOMEN: Soft, non-tender, non-distended, normal BS EXTREMITIES: No edema ASSESSMENT AND PLAN: This is a 46-year-old woman with a history of alcoholic cirrhosis, HTN who presented to the ER with left hip and left knee pain after a fall and developed alcohol withdrawal. 1. Delirium tremens/alcohol withdrawal - Improving - Continue Librium detox 2. Continuous alcohol dependence - Start thiamine 3. Alcoholic cirrhosis - Continue Aldactone - Repeat ammonia level 4. HTN - Continue Aldactone 5. 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 Hypopkalemia - Improved 7. Hypomagnesemia - Magnesium supplementation
[2017-01-16] MEDS ORDERED: MAGNESIUM OXIDE 400 MG TABLET (FP) PO ONE (14:47)
[2017-01-16] MEDS: SODIUM CHLORIDE 1,000 ML IV SCH ×2 (15:15→21:50)
[2017-01-16] MEDS ORDERED: ACETAMINOPHEN 325 MG TABLET (FP) PO PRN (17:51)
[2017-01-17] MEDS ORDERED: PT OWN MED DRAWER 7, Y5N ONE ×3 (00:23→18:51)
[2017-01-17] MEDS: SODIUM CHLORIDE 1,000 ML IV SCH ×3 (00:26→20:45)
[2017-01-17] MEDS: CIPROFLOXACIN HCL 0.3% OPHTH 2.5ML BOTTLE OU SCH ×4 (00:26→18:48)
[2017-01-17] MEDS: chlordiazePOXIDE 5 MG CAPSULE PO SCH ×6 (05:33→22:02)
[2017-01-17 06:06] LABS: SERUM IRON 160 ug/dL (27-159); TOTAL IRON BINDING CAPACITY 181 ug/dL (250-450); UIBC 21 ug/dL (131-425)
[2017-01-17 06:34] LABS: MCH 38.8 pg (25.7-33.7); MCHC 33.2 g/dl (32.0-36.0); MEAN CELL VOLUME 117.1 fl (80-96); MEAN PLT VOLUME 9.9 fl (7.5-11.1); RDW 15.9 % (11.6-15.6); WHITE BLOOD COUNT 3.1 K/mm3 (4.0-10.0)
[2017-01-17 06:53] LABS: CALCIUM 7.8 mg/dL (8.5-10.1); COCKROFT - GAULT 116.263; CREATININE 0.5 mg/dL (0.55-1.02); MAGNESIUM 1.1 mg/dL (1.8-2.4)
[2017-01-17 06:54] LABS: ALBUMIN 2.3 g/dl (3.4-5.0); BILIRUBIN,DIRECT 4.3 mg/dL (0.0-0.2); BILIRUBIN,TOTAL 6.5 mg/dL (0.2-1.0)
[2017-01-17 07:57] LABS: PLATELET COUNT 31 K/MM3 (134-434)
[2017-01-17] MEDS: LACTULOSE 20 GM/30 ML UDC (FOR ORAL USE ONLY) PO PRN (10:30)
[2017-01-17] MEDS: MAGNESIUM OXIDE 400 MG TABLET (FP) PO SCH ×2 (10:55→11:00)
[2017-01-17] MEDS: SPIRONOLACTONE 25 MG TABLET (FP) PO SCH ×2 (10:56→22:02)
[2017-01-17] MEDS: THIAMINE HCL 100 MG TABLET (FP) PO SCH (10:57)
[2017-01-17] MEDS: POTASSIUM CHLORIDE TABS 20 MEQ TABLET.ER (FP) PO SCH ×2 (10:57→22:02)
--- NOTE | 2017-01-17 11:42 | PN ---
Physical Exam: SUBJECTIVE: Patient seen and examined, more awake alert and oriented today. Eye discharge improved. Less tremor. PT today. OBJECTIVE: Vital Signs Period Temp Pulse Resp BP Sys/Thao Pulse Ox Last 24 Hr 98.2 F-100.3 F 72-84 16-20 100-137/65-79 96 GENERAL: The patient is awake, alert, and fully oriented, in no acute distress. HEAD: Normal with no signs of trauma. EYES: PERRL, extraocular movements intact, sclera anicteric, conjunctiva clear. No ptosis. ENT: Ears normal, nares patent, oropharynx clear without exudates, moist mucous membranes. NECK: Trachea midline, full range of motion, supple. LUNGS: Breath sounds equal, clear to auscultation bilaterally, no wheezes, no crackles, no accessory muscle use. HEART: Regular rate and rhythm, S1, S2 without murmur, rub or gallop. ABDOMEN: Soft, nontender, nondistended, normoactive bowel sounds, no guarding, no rebound, no hepatosplenomegaly, no masses. EXTREMITIES: 2+ pulses, warm, well-perfused, no edema. NEUROLOGICAL: Cranial nerves II through XII grossly intact. Normal speech, gait not observed. tremor improved PSYCH: Normal mood, normal affect. SKIN: Warm, dry, normal turgor, no rashes or lesions noted Laboratory Results - last 24 hr 01/15/17 01/16/17 01/17/17 11:45 11:12 05:35 WBC 3.1 L RBC 2.54 L Hgb 9.9 L Hct 29.8 L MCV 117.1 H MCHC 33.2 RDW 15.9 H Plt Count 31 L* D MPV 9.9 Sodium Potassium Chloride Carbon Dioxide Anion Gap BUN Creatinine POC Glucometer 107 Random Glucose Calcium Magnesium Iron 160 H TIBC 181 L Iron Saturation 88 H Total Bilirubin Direct Bilirubin AST ALT Alkaline Phosphatase Ammonia Total Protein Albumin 01/17/17 01/17/17 01/17/17 05:35 05:35 05:35 WBC RBC Hgb Hct MCV MCHC RDW Plt Count MPV Sodium 138 Potassium 3.7 Chloride 107 Carbon Dioxide 20 L Anion Gap 11 BUN 7 Creatinine 0.5 L POC Glucometer Random Glucose 80 Calcium 7.8 L Magnesium 1.1 L D Iron TIBC Iron Saturation Total Bilirubin 6.5 H Direct Bilirubin 4.3 H D AST 90 H ALT 38 Alkaline Phosphatase 84 Ammonia 39.93 H Total Protein 7.0 Albumin 2.3 L Active Medications Generic Name Dose Route Start Last Admin Trade Name Julio PRN Reason Stop Dose Admin Acetaminophen 650 mg 01/16/17 17:51 01/16/17 18:31 Tylenol - PO 650 mg Q6H PRN Administration FEVER OR PAIN Chlordiazepoxide HCl 10 mg 01/17/17 11:00 01/17/17 10:59 Librium - PO 01/18/17 05:01 10 mg [id number] JOSEMANUEL Administration Ciprofloxacin 2 drop 01/16/17 01:15 01/17/17 06:18 Ciloxan 0.3% Eye Drops - OU 2 drop Q6H JOSEMANUEL Administration Sodium Chloride 1,000 mls @ 125 mls/hr 01/13/17 20:45 01/17/17 11:04 Normal Saline - IV 125 mls/hr ASDIR JOSEMANUEL Administration Lactulose 20 gm 01/17/17 09:52 Cephulac (Oral Use) PO TID PRN CONSTIPATION Magnesium Oxide 800 mg 01/17/17 10:20 01/17/17 11:00 Mag-Ox - PO 800 mg DAILY JOSEMANUEL Administration Potassium Chloride 20 meq 01/14/17 22:00 01/17/17 10:57 K-Dur - PO 20 meq BID JOSEMANUEL Administration Spironolactone 25 mg 01/14/17 22:00 01/17/17 10:56 Aldactone - PO 25 mg BID JOSEMANUEL Administration Thiamine HCl 100 mg 01/17/17 10:00 01/17/17 10:57 Vitamin B1 - PO 100 mg DAILY JOSEMANUEL Administration ASSESSMENT/PLAN: 46 yea old male with a PMHx of alcoholic cirrhosis, on transplant list, hypertension, daily drinker; last drink 4 days ago as per chart, presents with hip and leg pain s/p fall after binge drinking. Admitted for ETOH withdrawal #Alcohol withdrawal: -CIWA score 14 on admission -ativan prn given in ER -bananna bag with vit b12/folate on admission -started on librium protocol; will finish tonight at 11pm -thiamine replacement #liver cirrhosis: -ammonia level elevated -monitor neuro exam; more awake alert today -lactulose if necessary #conjunctivitis bacterial vx viral; -minor pain a with greenish/yellow discharge -warm compresses fo open eyes -antibiotics eye drops # anemia most likely secondary to alcohol -MVC increase although b12 and folate are elevated -vit b12, folate -iron studies #thrombocytopenia secondary to alcohol use: improving #hip and knee pain:improved -r/o fracture s/p fall -xrays negative for acute bony pathology #hypertension: controlled -cont home med spironolacton with k supp #hypomagneisemia: -replace; laurent -on diruetics; poor oral intake -increase home med magnesium to 800mg po qd #hypokalemia: resolved FEN: Fluids: NS Electrolytes: trend Diet: regular VTE: prophylaxis : scds; thrombocytopenia: Disposition: finish librium protocol; does not want shiro care; d/c after taper Visit type - Emergency Visit Emergency Visit: Yes ED Registration Date: 01/14/17 Care time: The patient presented to the Emergency Department on the above date and was hospitalized for further evaluation of their emergent condition. - New Patient This patient is new to me today: No - Critical Care Critical Care patient: No
--- NOTE | 2017-01-17 16:05 | PN ---
Teaching Attending Note Name of Resident: Yeny Mancia ATTENDING PHYSICIAN STATEMENT I saw and evaluated the patient. I reviewed the resident's note and discussed the case with the resident. I agree with the resident's findings and plan as documented. SUBJECTIVE: Patient is less confused. OBJECTIVE: Vital Signs Period Temp Pulse Resp BP Sys/Thao Pulse Ox Last 24 Hr 98.2 F-100.3 F 72-84 18-20 100-137/65-79 96 HEART: S1 S2, RRR LUNGS: Clear ABDOMEN: Soft, non-tender, non-distended, normal BS EXTREMITIES: No edema ASSESSMENT AND PLAN: This is a 46-year-old woman with a history of alcoholic cirrhosis, HTN who presented to the ER with left hip and left knee pain after a fall and developed alcohol withdrawal. 1. Delirium tremens/alcohol withdrawal - Improving - Continue Librium detox 2. Continuous alcohol dependence - Continue thiamine 3. Alcoholic cirrhosis - Continue Aldactone 4. HTN - Continue Aldactone 5. 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 Hypopkalemia - Improved 7. Hypomagnesemia - Continue magnesium supplementation 8. Physical therapy
[2017-01-18] MEDS ORDERED: PT OWN MED DRAWER 7, Y5N ONE ×4 (00:41→18:52)
[2017-01-18] MEDS: CIPROFLOXACIN HCL 0.3% OPHTH 2.5ML BOTTLE OU SCH ×4 (00:43→18:35)
[2017-01-18] MEDS: chlordiazePOXIDE 5 MG CAPSULE PO SCH (06:30)
[2017-01-18 07:29] LABS: MCH 38.9 pg (25.7-33.7); MEAN CELL VOLUME 117.8 fl (80-96); MEAN PLT VOLUME 9.8 fl (7.5-11.1); RDW 15.5 % (11.6-15.6); WHITE BLOOD COUNT 3.1 K/mm3 (4.0-10.0)
[2017-01-18 07:34] LABS: PLATELET COUNT 32 K/MM3 (134-434)
[2017-01-18 08:06] LABS: ALBUMIN 2.5 g/dl (3.4-5.0); ALK PHOS 93 U/L (45-117); ANION GAP 9 (8-16); BILIRUBIN,TOTAL 6.5 mg/dL (0.2-1.0); CALCIUM 8.3 mg/dL (8.5-10.1); CO2 22 mmol/L (21-32); CREATININE 0.6 mg/dL (0.55-1.02); GLUCOSE,RANDOM 112 mg/dL (74-106); MAGNESIUM 1.2 mg/dL (1.8-2.4); SGOT/AST 81 U/L (15-37); SGPT/ALT 35 U/L (12-78); TOT PROT 7.4 g/dl (6.4-8.2)
[2017-01-18] MEDS ORDERED: MAGNESIUM SULF 50% (8.12 MEQ/2 ML-1 GM VIAL) IVPB ONE (10:15)
[2017-01-18] MEDS: MAGNESIUM OXIDE 400 MG TABLET (FP) PO SCH (10:35)
[2017-01-18] MEDS: POTASSIUM CHLORIDE TABS 20 MEQ TABLET.ER (FP) PO SCH ×2 (10:36→22:27)
[2017-01-18] MEDS: THIAMINE HCL 100 MG TABLET (FP) PO SCH (10:36)
[2017-01-18] MEDS: SPIRONOLACTONE 25 MG TABLET (FP) PO SCH ×2 (10:36→22:27)
[2017-01-18] MEDS: LACTULOSE 20 GM/30 ML UDC (FOR ORAL USE ONLY) PO PRN (10:40)
--- NOTE | 2017-01-18 13:25 | PN ---
Physical Exam: SUBJECTIVE: Patient seen and examined finished with librium taper; very unsteady on feet. Slightly confused. OBJECTIVE: Vital Signs Period Temp Pulse Resp BP Sys/Thao Pulse Ox Last 24 Hr 97.8 F-98.4 F 73-94 18-20 105-147/66-85 94-95 GENERAL: The patient is awake, alert, and fully oriented, in no acute distress. HEAD: Normal with no signs of trauma. EYES: PERRL, extraocular movements intact, sclera icteric, conjunctiva yellow crusted bl, improved. No ptosis. ENT: Ears normal, nares patent, oropharynx clear without exudates, moist mucous membranes. NECK: Trachea midline, full range of motion, supple. LUNGS: Breath sounds equal, clear to auscultation bilaterally, no wheezes, no crackles, no accessory muscle use. HEART: Regular rate and rhythm, S1, S2 without murmur, rub or gallop. ABDOMEN: Soft, nontender, nondistended, normoactive bowel sounds, no guarding, no rebound, no hepatosplenomegaly, no masses. EXTREMITIES: 2+ pulses, warm, well-perfused, no edema. NEUROLOGICAL: Cranial nerves II through XII grossly intact. Normal speech, gait observed, unsteady : +tremor b/l hands PSYCH: Normal mood, normal affect. SKIN: Warm, dry, normal turgor, no rashes or lesions noted; scattered echymosis ; legs Laboratory Results - last 24 hr 01/18/17 01/18/17 01/18/17 06:00 06:00 06:00 WBC 3.1 L RBC 2.77 L Hgb 10.8 Hct 32.7 MCV 117.8 H MCHC 33.0 RDW 15.5 Plt Count 32 L* MPV 9.8 Sodium 136 Potassium 4.1 Chloride 105 Carbon Dioxide 22 Anion Gap 9 BUN 5 L D Creatinine 0.6 Creat Clearance w eGFR > 60 Random Glucose 112 H D Calcium 8.3 L Magnesium 1.2 L Total Bilirubin 6.5 H AST 81 H ALT 35 Alkaline Phosphatase 93 Ammonia 33.45 H Total Protein 7.4 Albumin 2.5 L Active Medications Generic Name Dose Route Start Last Admin Trade Name Freq PRN Reason Stop Dose Admin Acetaminophen 650 mg 01/16/17 17:51 01/16/17 18:31 Tylenol - PO 650 mg Q6H PRN Administration FEVER OR PAIN Ciprofloxacin 2 drop 01/16/17 01:15 01/18/17 13:08 Ciloxan 0.3% Eye Drops - OU 2 drop Q6H JOSEMANUEL Administration Magnesium Oxide 800 mg 01/17/17 10:20 01/18/17 10:35 Mag-Ox - PO 800 mg DAILY JOSEMANUEL Administration Potassium Chloride 20 meq 01/14/17 22:00 01/18/17 10:36 K-Dur - PO 20 meq BID JOSEMANUEL Administration Spironolactone 25 mg 01/14/17 22:00 01/18/17 10:36 Aldactone - PO 25 mg BID JOSEMANUEL Administration Thiamine HCl 100 mg 01/17/17 10:00 01/18/17 10:36 Vitamin B1 - PO 100 mg DAILY JOSEMANUEL Administration ASSESSMENT/PLAN: 46 yea old male with a PMHx of alcoholic cirrhosis, on transplant list, hypertension, daily drinker; last drink 4 days ago as per chart, presents with hip and leg pain s/p fall after binge drinking. Admitted for ETOH withdrawal . #Alcohol withdrawal: -CIWA score 14 on admission -ativan prn given in ER -bananna bag with vit b12/folate on admission -librium protocol finished -thiamine replacement #liver cirrhosis: -ammonia level elevated: improved -monitor neuro exam; more awake alert today but still slightly confused -lactulose if necessary #conjunctivitis : improved -minor pain a with greenish/yellow discharge -warm compresses fo open eyes -antibiotics eye drops # anemia most likely secondary to alcohol: stable -MVC increase although b12 and folate are elevated -iron studies #thrombocytopenia secondary to alcohol use: improving #hip and knee pain:improved -r/o fracture s/p fall -xrays negative for acute bony pathology #hypertension: controlled -cont home med spironolacton with k supp #hypomagneisemia: -replace; laurent -on diruetics; poor oral intake -increase home med magnesium to 800mg po bid #hypokalemia: resolved FEN: Fluids: NS Electrolytes: trend Diet: regular VTE: prophylaxis : scds; thrombocytopenia: Disposition: finish librium protocol; does not want park care; did not do well with physical therapy; may need ERICA; reeval tomorrow Visit type - Emergency Visit Emergency Visit: Yes ED Registration Date: 01/14/17 Care time: The patient presented to the Emergency Department on the above date and was hospitalized for further evaluation of their emergent condition. - New Patient This patient is new to me today: No - Critical Care Critical Care patient: No
--- NOTE | 2017-01-18 13:49 | PN ---
Teaching Attending Note Name of Resident: Yeny Mancia ATTENDING PHYSICIAN STATEMENT I saw and evaluated the patient. I reviewed the resident's note and discussed the case with the resident. I agree with the resident's findings and plan as documented. SUBJECTIVE: Patient is awake and alert. She has no complaints and wants to go home. She is unable to get up from bed and stand. OBJECTIVE: Vital Signs Period Temp Pulse Resp BP Sys/Thao Pulse Ox Last 24 Hr 97.8 F-98.4 F 73-94 18-20 105-147/66-85 94-95 HEART: S1S2, RRR LUNGS: Clear ABDOMEN: Soft, non-tender, non-distended, normal BS EXTREMITIES: No edema ASSESSMENT AND PLAN: This is a 46-year-old woman with a history of alcoholic cirrhosis, HTN who presented to the ER with left hip and left knee pain after a fall and developed alcohol withdrawal. 1. Delirium tremens/alcohol withdrawal - Improving - Completed Librium detox 2. Continuous alcohol dependence - Continue thiamine 3. Alcoholic cirrhosis - Continue Aldactone 4. HTN - Continue Aldactone 5. 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 Hypopkalemia - Improved 7. Hypomagnesemia - Continue magnesium supplementation 8. Continue physical therapy. Recommend subacute rehab.
[2017-01-19] MEDS: CIPROFLOXACIN HCL 0.3% OPHTH 2.5ML BOTTLE OU SCH ×4 (01:58→19:01)
[2017-01-19] MEDS ORDERED: PT OWN MED DRAWER 7, Y5N ONE ×3 (06:18→19:06)
[2017-01-19 08:25] LABS: MCH 38.7 pg (25.7-33.7); MCHC 33.1 g/dl (32.0-36.0); MEAN CELL VOLUME 116.9 fl (80-96); MEAN PLT VOLUME 10.3 fl (7.5-11.1); PLATELET COUNT 46 K/MM3 (134-434); RDW 16.3 % (11.6-15.6); WHITE BLOOD COUNT 3.6 K/mm3 (4.0-10.0)
[2017-01-19 09:10] LABS: PLATELET ESTIMATE DECREASED (NORMAL)
[2017-01-19 09:11] LABS: ANISOCYTOSIS 2+; HYPOCHROMIA 1+; PLATELET COMMENT2 NO CLOTTING DETECTED; POIKILOCYTOSIS 1+
[2017-01-19 09:49] LABS: ALBUMIN 2.6 g/dl (3.4-5.0); ANION GAP 13 (8-16); BILIRUBIN,TOTAL 6.7 mg/dL (0.2-1.0); CALCIUM 8.6 mg/dL (8.5-10.1); CO2 23 mmol/L (21-32); CREATININE 0.6 mg/dL (0.55-1.02); GLUCOSE,RANDOM 88 mg/dL (74-106); MAGNESIUM 1.2 mg/dL (1.8-2.4); PHOSPHOROUS 4.1 mg/dL (2.5-4.9); SGOT/AST 75 U/L (15-37); SGPT/ALT 37 U/L (12-78); TOT PROT 7.7 g/dl (6.4-8.2)
[2017-01-19 09:50] LABS: ALK PHOS 115 U/L (45-117)
[2017-01-19] MEDS: MAGNESIUM OXIDE 400 MG TABLET (FP) PO SCH ×2 (10:42→21:18)
[2017-01-19] MEDS: POTASSIUM CHLORIDE TABS 20 MEQ TABLET.ER (FP) PO SCH ×2 (10:42→21:19)
[2017-01-19] MEDS: SPIRONOLACTONE 25 MG TABLET (FP) PO SCH ×2 (10:43→21:19)
[2017-01-19] MEDS: THIAMINE HCL 100 MG TABLET (FP) PO SCH (10:43)
--- NOTE | 2017-01-19 14:39 | PN ---
Physical Exam: SUBJECTIVE: Patient seen and examined. She feels weak. OBJECTIVE: Vital Signs Period Temp Pulse Resp BP Sys/Thao Pulse Ox Last 24 Hr 98.1 F-98.8 F 75-91 16-18 105-117/66-79 98 GENERAL: The patient is awake, alert, and fully oriented, in no acute distress. Jaundiced. LUNGS: Breath sounds equal, clear to auscultation bilaterally, no wheezes, no crackles, no accessory muscle use. HEART: Regular rate and rhythm, S1, S2 without murmur, rub or gallop. ABDOMEN: Soft, nontender, nondistended, normoactive bowel sounds, no guarding, no rebound, no hepatosplenomegaly, no masses. EXTREMITIES: 2+ pulses, warm, well-perfused, no edema. Laboratory Results - last 24 hr 01/19/17 01/19/17 07:05 07:05 WBC 3.6 L RBC 2.94 L Hgb 11.4 Hct 34.4 MCV 116.9 H MCHC 33.1 RDW 16.3 H Plt Count 46 L D MPV 10.3 Neutrophils % 56.0 Lymphocytes % 30.0 D Monocytes % 8.0 Eosinophils % 4.0 D Band Neutrophils 2.0 Platelet Estimate Decreased Platelet Comment No clotting detected Hypochromic-Microcytic 1+ Poikilocytosis 1+ Anisocytosis 2+ Macrocytosis 2+ Sodium 137 Potassium 3.8 Chloride 101 Carbon Dioxide 23 Anion Gap 13 BUN 7 D Creatinine 0.6 Creat Clearance w eGFR > 60 Random Glucose 88 D Calcium 8.6 Phosphorus 4.1 D Magnesium 1.2 L Total Bilirubin 6.7 H AST 75 H ALT 37 Alkaline Phosphatase 115 D Total Protein 7.7 Albumin 2.6 L Active Medications Generic Name Dose Route Start Last Admin Trade Name Freq PRN Reason Stop Dose Admin Acetaminophen 650 mg 01/16/17 17:51 01/16/17 18:31 Tylenol - PO 650 mg Q6H PRN Administration FEVER OR PAIN Ciprofloxacin 2 drop 01/16/17 01:15 01/19/17 13:25 Ciloxan 0.3% Eye Drops - OU 2 drop Q6H JOSEMANUEL Administration Magnesium Oxide 800 mg 01/17/17 10:20 01/19/17 10:42 Mag-Ox - PO 800 mg DAILY JOSEMANUEL Administration Potassium Chloride 20 meq 01/14/17 22:00 01/19/17 10:42 K-Dur - PO 20 meq BID JOSEMANUEL Administration Spironolactone 25 mg 01/14/17 22:00 01/19/17 10:43 Aldactone - PO 25 mg BID JOSEMANUEL Administration Thiamine HCl 100 mg 01/17/17 10:00 01/19/17 10:43 Vitamin B1 - PO 100 mg DAILY JOSEMANUEL Administration ASSESSMENT/PLAN: This is a 46-year-old woman with a history of alcoholic cirrhosis, HTN who presented to the ER with left hip and left knee pain after a fall and developed alcohol withdrawal. 1. Delirium tremens/alcohol withdrawal - Resolved - Completed Librium detox 2. Continuous alcohol dependence - Continue thiamine 3. Alcoholic cirrhosis - Continue Aldactone 4. HTN - Continue Aldactone 5. 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 Hypopkalemia - Improved 7. Hypomagnesemia - Continue magnesium supplementation 8. Continue physical therapy. Patient and family considering subacute rehab. Visit type - Emergency Visit Emergency Visit: Yes ED Registration Date: 01/14/17 Care time: The patient presented to the Emergency Department on the above date and was hospitalized for further evaluation of their emergent condition. - New Patient This patient is new to me today: No - Critical Care Critical Care patient: No - Discharge Referral Referred to [facility] No
[2017-01-19] MEDS ORDERED: MAGNESIUM SULF 50% (8.12 MEQ/2 ML-1 GM VIAL) IVPB ONE (15:30)
[2017-01-20] MEDS: CIPROFLOXACIN HCL 0.3% OPHTH 2.5ML BOTTLE OU SCH ×3 (01:09→13:50)
[2017-01-20 07:30] LABS: MCH 38.5 pg (25.7-33.7); MCHC 32.8 g/dl (32.0-36.0); MEAN CELL VOLUME 117.4 fl (80-96); MEAN PLT VOLUME 9.4 fl (7.5-11.1); PLATELET COUNT 38 K/MM3 (134-434); RDW 15.7 % (11.6-15.6); WHITE BLOOD COUNT 3.5 K/mm3 (4.0-10.0)
[2017-01-20 08:01] LABS: MAGNESIUM 1.4 mg/dL (1.8-2.4)
[2017-01-20 08:03] LABS: CALCIUM 8.8 mg/dL (8.5-10.1); COCKROFT - GAULT 96.883; CREATININE 0.6 mg/dL (0.55-1.02)
[2017-01-20] MEDS: THIAMINE HCL 100 MG TABLET (FP) PO SCH (09:04)
[2017-01-20] MEDS: MAGNESIUM OXIDE 400 MG TABLET (FP) PO SCH (09:04)
[2017-01-20] MEDS: SPIRONOLACTONE 25 MG TABLET (FP) PO SCH (09:04)
[2017-01-20] MEDS: POTASSIUM CHLORIDE TABS 20 MEQ TABLET.ER (FP) PO SCH (09:04)
[2017-01-20] MEDS ORDERED: MAGNESIUM SULF 50% (8.12 MEQ/2 ML-1 GM VIAL) IVPB ONE (09:35)
[2017-01-20 14:18] VITALS: BP 110/60; PULSE 79; TEMP 98.2
--- NOTE | 2017-01-20 16:48 | DS ---
Physical Exam: SUBJECTIVE: Patient seen and examined confusion improved; able to walk with physical therapy, refuses outpatient treatment for detox or rehab. OBJECTIVE: Vital Signs Period Temp Pulse Resp BP Sys/Thao Pulse Ox Last 24 Hr 98 F-98.5 F 71-88 18-22 102-113/60-83 95-96 PHYSICAL EXAM GENERAL: The patient is awake, alert, and fully oriented, in no acute distress. HEAD: Normal with no signs of trauma. EYES: PERRL, extraocular movements intact, sclera icteric, conjunctiva clear. ENT: Ears normal, nares patent, oropharynx clear without exudates, moist mucous membranes. NECK: Trachea midline, full range of motion, supple. LUNGS: Breath sounds equal, clear to auscultation bilaterally, no wheezes, no crackles, no accessory muscle use. HEART: Regular rate and rhythm, S1, S2 without murmur, rub or gallop. ABDOMEN: Soft, nontender, nondistended, normoactive bowel sounds, no guarding, no rebound, no hepatosplenomegaly, no masses. EXTREMITIES: 2+ pulses, warm, well-perfused, no edema. strength 4/5 LE extremity b/l NEUROLOGICAL: Cranial nerves II through XII grossly intact. Normal speech, gait not observed. PSYCH: Normal mood, normal affect. SKIN: Warm, dry, normal turgor, no rashes or lesions noted. scattered healing ecchymosis LABS Laboratory Results - last 24 hr 01/20/17 01/20/17 05:35 05:35 WBC 3.5 L RBC 2.79 L Hgb 10.8 Hct 32.8 MCV 117.4 H MCHC 32.8 RDW 15.7 H Plt Count 38 L MPV 9.4 Sodium 138 Potassium 3.9 Chloride 105 Carbon Dioxide 25 Anion Gap 8 BUN 10 D Creatinine 0.6 Random Glucose 86 Calcium 8.8 Magnesium 1.4 L HOSPITAL COURSE: Date of Admission:01/14/17 Date of Discharge: 01/20/17 46 year old female with a PMHx of alcoholic cirrhosis, on transplant list, hypertension, daily drinker; last drink 4 days before admission, presented with hip and leg pain s/p fall after binge drinking. Admitted for ETOH withdrawal. #Alcohol withdrawal: -CIWA score 14 on admission -ativan prn -bananna bag with vit b12/folate on admission -librium protocol finished -thiamine replacement -refused [facility] or [facility] program #liver cirrhosis: -ammonia level elevated: improved -monitor neuro exam; improved -lactulose if worsened #conjunctivitis : resolved -minor pain a with greenish/yellow discharge -warm compresses fo open eyes -antibiotic ceftriaxone eye drops # anemia most likely secondary to alcohol: stable -MVC increase although b12 and folate are elevated -iron studies #thrombocytopenia secondary to alcohol use: improved #hip and knee pain:improved -r/o fracture s/p fall -xrays negative for acute bony pathology #hypertension: controlled -cont home med spironolacton with k supp #hypomagneisemia: -started on 800mg bid for home -on diruetics; poor oral intake #hypokalemia: resolved Patient and family refused subacute rehab for weakness; will go as out patient physical therapy, according to the patient. Minutes to complete discharge: 35 Discharge Summary Reason For Visit: ETOH WITHDRAWAL THIGH CONTUSION Current Active Problems Alcohol dependence with withdrawal (Acute) Alcohol withdrawal (Acute) Cirrhosis of liver (Acute) Thigh contusion (Acute) Thrombocytopenia (Acute) Condition: Improved - Instructions Diet, Activity, Other Instructions: Ms. Jimenez you have been treated for alcohol withdrawal, we do suggest outpatient treatment for increased strength and stability. Information provided. Please refrain from any alcohol use. Please follow up with your administrative support clerk regarding your liver condition, with in one week. Please follow up with your primary physician with in week to follow up with your magnesium levels and platelet count. If you experience any worsening of symptoms including chest pain, shortness of breath , confusion, increased weakness, please return to the emergency room. Referrals: STAFF,NOT ON [Primary Care Provider] - Disposition: HOME - Home Medications Comprehensive Discharge Medication List: Ambulatory Orders Magnesium Oxide [Magnesium] 400 mg PO DAILY 01/13/17 Potassium Chloride 20 meq PO BID 01/13/17 Magnesium Oxide [Mag-Ox -] 800 mg PO BID #60 tablet 01/20/17 Miscellaneous Medical Supply [Outpatient Order] 1 each ASDIR #1 misc Spironolactone 25 mg PO BID #30 tab 01/20/17 Thiamine HCl [Vitamin B1 -] 100 mg PO DAILY tablet 01/20/17 This patient is new to me today: No Emergency Visit: Yes ED Registration Date: 04/25/17 Care time: The patient presented to the Emergency Department on the above date and was hospitalized for further evaluation of their emergent condition. Critical Care patient: No - Discharge Referral Referred to [facility] No
--- NOTE | 2017-01-20 19:59 | PN ---
Teaching Attending Note Name of Resident: Yeny Mancia ATTENDING PHYSICIAN STATEMENT I saw and evaluated the patient. I reviewed the resident's note and discussed the case with the resident. I agree with the resident's findings and plan as documented. SUBJECTIVE: No complaints. OBJECTIVE: Vital Signs Period Temp Pulse Resp BP Sys/Thao Pulse Ox Last 24 Hr 98 F-98.4 F 71-79 18-22 102-110/60-66 95-96 GENERAL: The patient is awake, alert, and fully oriented, in no acute distress. Jaundiced. LUNGS: Breath sounds equal, clear to auscultation bilaterally, no wheezes, no crackles, no accessory muscle use. HEART: Regular rate and rhythm, S1, S2 without murmur, rub or gallop. ABDOMEN: Soft, nontender, nondistended, normoactive bowel sounds, no guarding, no rebound, no hepatosplenomegaly, no masses. EXTREMITIES: 2+ pulses, warm, well-perfused, no edema. ASSESSMENT AND PLAN: This is a 46-year-old woman with a history of alcoholic cirrhosis, HTN who presented to the ER with left hip and left knee pain after a fall and developed alcohol withdrawal. 1. Delirium tremens/alcohol withdrawal - Resolved - Completed Librium detox 2. Continuous alcohol dependence - Continue thiamine 3. Alcoholic cirrhosis - Continue Aldactone 4. HTN - Continue Aldactone 5. 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 Hypopkalemia - Improved 7. Hypomagnesemia - Continue magnesium supplementation 8. Patient refusing alcohol rehab, subacute rehab. Discharge home. Outpatient physical therapy. Outpatient alcohol rehab.
== END 2017-01-20 17:56 | disposition home or self-care (01) | DRG 775 ==
LOC: JER 17:48 → JERBED 01-14 06:16 → J4S 01-14 09:15 → J4W 01-20 01:42
PROVIDERS: ADMIT Internal Medicine; ATTEND Internal Medicine
PROC: HZ2ZZZZ Detoxification Services for Substance Abuse Treatment (ICD-10-PCS; principal; 2017-01-13)
DX: F10.231 Alcohol dependence with withdrawal delirium (principal); H10.9 Unspecified conjunctivitis; I10 Essential (primary) hypertension; E87.6 Hypokalemia; E83.42 Hypomagnesemia; D69.6 Thrombocytopenia, unspecified; S70.10XA Contusion of unspecified thigh, initial encounter; W19.XXXA Unspecified fall, initial encounter; Y93.9 Activity, unspecified; Y92.89 Other specified places as the place of occurrence of the external cause; Y99.9 Unspecified external cause status; D61.818 Other pancytopenia; K70.31 Alcoholic cirrhosis of liver with ascites; D53.9 Nutritional anemia, unspecified
CPT/HCPCS: 36415; 73523-TC; 73562-TC-LT; 80048; 80053; 80076; 80307; 82140; 82248; 82550; 82553; 82607; 82728; 82746; 83540; 83550; 83690; 83735; 84100; 84484; 85025; 85027; 85044; 85610; 93005; 93010; 97116-GP; 97161-GP; 99284-25